=== PATIENT | male | born 1955 | race Caucasian/White ===

== ENCOUNTER 2018-07-25 21:41 | Emergency (ER) | payer OTHER, SELFPAY ==
[2018-07-25 21:51] VITALS: BP 165/84; PULSE 99; RESP 18; TEMP 37.2; O2SAT 97; BMI 35.2
--- NOTE | 2018-07-25 22:00 | ED_ITS ---
HPI - Chest Pain General Chief Complaint: Chest Pain Stated Complaint: CHEST PAIN Time Seen by Provider: 07/25/18 21:47 Source: patient Mode of arrival: ambulatory Limitations: no limitations History of Present Illness HPI narrative: 63-year-old male with a history of coronary artery disease and a prior history of a four-vessel coronary artery bypass graft done back in 2009 in [place]. Patient states that today he had retrosternal chest ?burning? he states that he went to his left arm. He states that he has had this pain off and on for the past couple days. He did state that he has nitro at home. He has never taken it before. He did take it at home today and stated that the symptoms completely resolved. States that after short period of time the symptoms returned. He has got no shortness of breath. No abdominal pain. No nausea. He states that the symptoms that brought him in today are very similar to his symptoms prior to his prior heart attack however not as bad. Related Data Home Medications Medication Instructions Recorded Confirmed aspirin, buffered 325 mg PO DAILY 07/25/18 07/25/18 atorvastatin 40 mg PO DAILY 07/25/18 07/25/18 metoprolol tartrate 50 mg PO BID 07/25/18 07/25/18 ramipril 2.5 mg PO DAILY 07/25/18 07/25/18 Review of Systems Constitutional Denies chills, Denies fatigue, Denies fever(s) and Denies malaise Eyes Denies diplopia ENT Ears, Nose, Mouth, and Throat: Denies vertigo and Denies dizziness Cardiovascular Reports chest pain, Denies diaphoresis, Denies rapid heart rate, Denies pedal edema, Denies edema, Denies irregular heart rhythm, Denies palpitations and Denies dyspnea Respiratory Denies cough and Denies dyspnea Gastrointestinal Gastrointestinal: Denies abdominal pain, Denies melena, Denies change in stool character, Denies constipation, Denies nausea and Denies vomiting Musculoskeletal Denies myalgias and Denies arthralgias Integumentary/Breasts Denies lesions and Denies rash Neurologic Denies confusion, Denies vertigo and Denies dizziness Psychiatric Denies confusion Endocrine Denies fatigue and Denies palpitations Hematologic/Lymphatic Denies easy bleeding and Denies easy bruising [facility] Medical History Coronary artery disease (Acute) Myocardial infarction (Acute) Surgical History Hx of CABG (Acute) Social History Smoking Status: Former smoker Exam Initial Vital Signs Initial Vital Signs: Vital Signs Temperature 99.0 F 07/25/18 21:51 Pulse Rate 99 H 07/25/18 21:51 Respiratory Rate 18 07/25/18 21:51 Blood Pressure 165/84 H 07/25/18 21:51 Pulse Oximetry 97 07/25/18 21:51 Const General: cooperative, healthy appearing, well developed, well groomed and No acute distress Orientation: alert, awake and oriented x3 HENMT Head: normal to inspection, normocephalic and atraumatic Chest Chest: normal inspection of the chest Breast inspection: normal inspection of the breasts Resp Effort & Inspection: normal respiratory effort Auscultation: clear to auscultation bilaterally Cardio Palpation: normal PMI Rate: regular rate Rhythm: regular rhythm Heart Sounds: no murmurs Pulses: radial pulses present GI Inspection: non-distended Palpation: soft, No firm and No tender Skin Lesions: no lesions Rashes: no rashes Neuro General: alert, awake and oriented x3 Cognition: normal cognition Speech: speech normal Motor: muscle tone normal throughout Sensory Exam: no sensory deficits noted Extrem General: normal to inspection, full ROM, capillary refill normal and No edema Psych Appearance: grossly normal and well kempt Course Orders Ordered: ED Orders 07/25/18 21:55 B Type Natriuretic Peptide Stat Basic Metabolic Panel Stat Complete Blood Count AUTO DIFF Stat Troponin I Stat 07/25/18 22:01 XR chest 1V Stat Sodium Chloride (Normal Saline 0.9%) 1,000 mls @ 125 mls/hr IV CONT ALINA Last Admin: 07/25/18 22:15 Dose: 125 mls/hr Discontinued Medications Aspirin (Aspirin Chew) 324 mg PO NOW ONE Stop: 07/25/18 22:01 Last Admin: 07/25/18 22:15 Dose: Not Given Heparin Sodium (Porcine) (Heparin) 6,100 unit 60 unit/kg (6100 unit) IV NOW ONE Stop: 07/25/18 22:53 Nitroglycerin (Nitro-Bid) 1 inch TOP NOW ONE Stop: 07/25/18 22:11 Last Admin: 07/25/18 22:15 Dose: 1 inch Vital Signs - 8 hr 07/25/18 21:51 07/25/18 23:12 Temperature 99.0 F Pulse Rate 99 H 84 Respiratory Rate 18 20 Blood Pressure 165/84 H Blood Pressure [Right Arm] 138/64 Pulse Oximetry 97 95 MDM - Chest Pain Lab Data Attestation: I reviewed the patient's lab results. Result diagrams: 07/25/18 21:55 07/25/18 21:55 Lab Results 07/25/18 07/25/18 Range/Units 21:55 21:55 WBC 14.7 H (4.5-11.0) X10^3/uL RBC 5.40 (4.5-5.9) X10^6/uL Hgb 15.1 (13.5-17.5) g/dL Hct 44.4 (41-53) % MCV 82.3 (80-100) fL MCH 28.0 (26-34) PG MCHC 34.1 (30-36) % RDW 13.9 (11.6-14.8) % Plt Count 290 (150-400) X10^3/uL Neut % (Auto) 63.3 (50-75) % Lymph % (Auto) 26.8 (25-40) % Schley % (Auto) 6.8 (3-14) % Eos % (Auto) 1.6 L (2-4) % Baso % (Auto) 1.5 (0-2) % Neut # (Auto) 9300 H (9924-3146) /uL Sodium 147 H (137-145) mmol/L Potassium 4.3 (3.4-5.1) mmol/L Chloride 107 (98-107) mmol/L Carbon Dioxide 26 (22-32) mmol/L BUN 24 H (9-20) mg/dL Creatinine 1.00 (0.66-1.25) mg/dL Estimated GFR > 60.0 (>60) mL/min BUN/Creatinine Ratio 24.0 H (6-22) Glucose 163 H (80-110) mg/dL Calcium 9.3 (8.4-10.2) mg/dL Troponin I 0.261 H* (0.01-0.034) ng/mL B-Natriuretic Peptide 94.8 (<100) Imaging Data Chest x-ray: Attestation: I personally reviewed and interpreted this imaging study as follows: My impression: No focal consolidation. No pneumothorax. Sternal wires in place ECG Data Attestation: I personally reviewed and interpreted this ECG as follows: Prior ECG tracings: not available for review Interpretation: Sinus rhythm Ventricular rate of 96 ST depressions V2 through V6, 1 aVL, no ST elevations 2 3 AVF for AVR Right bundle branch block Normal QTC MDM Narrative Medical decision making narrative: Patient with a history of coronary artery bypass graft and retrosternal burning that he states feels like his prior NM. He was given nitro paste here in the emergency department which did seem to improve his symptoms. He had already taken an aspirin prior to arrival. Heparin was started. He did have an elevated troponin. No ST elevations noted on the EKG however does have diffuse ST depressions. I discussed the case with sports development officer at [facility] who recommended the patient be transferred there. I discussed the case with the hospitalist with Internal Medicine who accepts the patient in transfer. I discussed the transfer with the patient and his . They both expressed understanding and agreement with plan. Discharge Plan Departure Patient Disposition: [facility] Clinical Impression: Non-ST elevation NM (NSTEMI) Prescriptions: No Action atorvastatin 40 mg Tablet 40 mg PO DAILY RF: 0 aspirin, buffered 325 mg Tablet 325 mg PO DAILY RF: 0 ramipril 2.5 mg Capsule 2.5 mg PO DAILY RF: 0 metoprolol tartrate 50 mg Tablet 50 mg PO BID RF: 0
--- NOTE | 2018-07-25 22:01 | DI.RAD.S_ITS ---
PROCEDURE: XR CHEST 1V INDICATIONS: Chest pain TECHNIQUE: One view of the chest was acquired. COMPARISON: None. FINDINGS: Surgical changes and devices: Patient is status post median sternotomy. Lungs and pleura: Lung volumes are low. Mild pulmonary opacities are present at the left lung base. No pleural effusion or pneumothorax. Mediastinum: Mediastinal contours appear normal. Heart size is normal. Bones and chest wall: No suspicious bony lesions. Overlying soft tissues appear unremarkable. IMPRESSION: Mild left basilar pulmonary radiopacity suspicious for atelectasis in the setting of low lung volumes. However, aspiration/infection could also be considered. Dictated by: Paz Rivera M.D. on 07/26/2018 at 7:02 Approved by: Paz Rivera M.D. on 07/26/2018 at 7:03
[2018-07-25 22:12] LABS: Blood Urea Nitrogen 24 mg/dL (9-20); Calcium 9.3 mg/dL (8.4-10.2); Carbon Dioxide 26 mmol/L (22-32); Chloride 107 mmol/L (98-107); Estimated Glomerular Filt Rate > 60.0 mL/min (>60); Glucose 163 mg/dL (80-110); Sodium 147 mmol/L (137-145)
[2018-07-25 22:13] LABS: Add Manual Diff / Slide Review NO; Basophils Percent Auto 1.5 % (0-2); Eosinophils Percent Auto 1.6 % (2-4); Hematocrit 44.4 % (41-53); Hemoglobin 15.1 g/dL (13.5-17.5); Lymphocytes Percent Auto 26.8 % (25-40); Mean Corpuscular HGB Conc 34.1 % (30-36); Mean Corpuscular Volume 82.3 fL (80-100); Monocytes Percent Auto 6.8 % (3-14); Neutrophils Absolute Auto 9300 /uL (3000-5900); Neutrophils Percent Auto 63.3 % (50-75); Platelet Count 290 X10^3/uL (150-400); Red Cell Distribution Width 13.9 % (11.6-14.8); White Blood Cell Count 14.7 X10^3/uL (4.5-11.0)
[2018-07-25 22:15] LABS: Potassium 4.3 mmol/L (3.4-5.1)
[2018-07-25] MEDS: NITROGLYCERIN OINT 1 INCH/GM OINT...G. TOP (22:15)
[2018-07-25] MEDS: SODIUM CHLORIDE 0.9% 1,000 ML 125 ML IV (22:15)
[2018-07-25 22:33] LABS: B Type Natriuretic Peptide 94.8 (<100)
[2018-07-25 22:48] LABS: HEMOLYSIS 71 (0-50)
[2018-07-25 22:51] LABS: Troponin I 0.261 ng/mL (0.01-0.034)
[2018-07-25 23:12] VITALS: BP 138/64; PULSE 84; RESP 20; O2SAT 95
[2018-07-25] MEDS: HEPARIN 5,000 UNIT/ML VIAL 6100 UNIT IV (23:41)
[2018-07-25] MEDS: HEPARIN DRIP 25,000 UNIT/500 ML IV.SOLN 24.494 UNIT IV (23:42)
[2018-07-26 00:35] VITALS: BP 129/71; PULSE 84; RESP 16
[2018-07-26 00:38] VITALS: TEMP 36.8
[2018-07-26 01:27] VITALS: BP 129/71; RESP 20; O2SAT 95
--- NOTE | 2018-07-26 02:50 | PC.NURSE ---
0130 Bedside report provided to casting finisher prior to transfer to [facility]. All questions and required documents provided. Pt denies any CP at this time and in NAD.
--- NOTE | 2018-07-27 23:50 | PC.NURSE ---
Late Entry for 07/26/2018 at 0145-IVF of NS 0.9% infusion completed of 1000ml and Heparin drip of 49ml when pt transferred to [facility] with [facility] transfer team. Pt continue to receive Heparin drip when left ER with [facility] cigar wrapper tender automatic.
== END 2018-07-26 01:35 | disposition short-term general hospital (02) ==
PROVIDERS: Emergency Provider Emergency Medicine
DX: I21.4 Non-ST elevation (NSTEMI) myocardial infarction (principal)
CPT/HCPCS: 36591; 71045; 80048; 83880; 84484; 85025; 93005; 93041; 96361; 96365; 96366; 96376; 99284; 99285; J1644

== ENCOUNTER 2018-08-13 19:26 | Emergency (ER) | payer OTHER, SELFPAY ==
[2018-08-13 19:32] VITALS: BP 118/61; PULSE 92; RESP 15; TEMP 36.7; O2SAT 90; BMI 33.5
--- NOTE | 2018-08-13 20:13 | ED_ITS ---
HPI - Male Genitourinary General Chief complaint: Urogenital-Male Stated complaint: HERNANDEZ CATH PLUGGED Time Seen by Provider: 08/13/18 20:13 Source: patient Mode of arrival: ambulatory Limitations: no limitations History of Present Illness HPI Narrative: 63-year-old male here for concerns of his Hernandez catheter being clogged. He has a Hernandez catheter in place since his recent hospital admission where he had a carotid endarterectomy and a coronary artery bypass graft. His was at bedside states that during this hospital visit he had a catheter in place but when they removed it he failed his due to void. He has had urinary issues in the past. He does have a scheduled follow-up with a urologist later this month. States he is having a lot of pressure feeling like he has to urinate he also has been leaking around the Hernandez catheter. Related Data Home Medications Medication Instructions Recorded Confirmed aspirin, buffered 325 mg PO DAILY 07/25/18 07/25/18 atorvastatin 40 mg PO DAILY 07/25/18 07/25/18 metoprolol tartrate 50 mg PO BID 07/25/18 07/25/18 ramipril 2.5 mg PO DAILY 07/25/18 07/25/18 Allergies Allergy/AdvReac Type Severity Reaction Status Date / Time No Known Drug Allergies Allergy Verified 08/13/18 19:32 Review of Systems Cardiovascular Denies chest pain and Denies dyspnea Respiratory Denies dyspnea Gastrointestinal Gastrointestinal: Denies abdominal pain Genitourinary Comments: Clogged urinary catheter Integumentary/Breasts Denies lesions and Denies rash Hematologic/Lymphatic Denies easy bleeding and Denies easy bruising [facility] Medical History Coronary artery disease (Acute) Myocardial infarction (Acute) Surgical History Hx of CABG (Acute) Social History Smoking Status: Former smoker Exam Initial Vital Signs Initial Vital Signs: Vital Signs Temperature 98.0 F 08/13/18 19:32 Pulse Rate 92 H 08/13/18 19:32 Respiratory Rate 15 08/13/18 19:32 Blood Pressure 118/61 08/13/18 19:32 Pulse Oximetry 90 L 08/13/18 19:32 Const General: cooperative, healthy appearing, comfortable, well developed, well groomed and No acute distress Orientation: alert, awake and oriented x3 GI Other: lower abdomen distention with tenderness to palpation suprapubic Other: Hernandez catheter in place Skin Lesions: no lesions Rashes: no rashes Psych Appearance: grossly normal and well kempt Course Vital Signs - 8 hr 08/13/18 19:32 08/13/18 21:45 Temperature 98.0 F 98.7 F Pulse Rate 92 H 85 Respiratory Rate 15 16 Blood Pressure 118/61 107/61 Pulse Oximetry 90 L 95 MDM - Male Genitourinary MDM Narrative Medical decision making narrative: patient's Hernandez catheter was irrigated here in the emergency department with return of small clots. Did flow afterwards and had return of approximately 100 cc urine. Patient states he felt much better. We did discuss care instructions. He was instructed to keep his appointment with his urologist. He was given return precautions. He expressed understanding and agreement with plan. Discharge Plan Departure Patient Disposition: Home Clinical Impression: Obstructed Hernandez catheter Discharge Date/Time: 08/13/18 21:45 Interventions: ED Discharge Assessment Last Done: 08/13/18 21:45 Instructions: How to Care for Your Hernandez Catheter -- Male Activity Restrictions/Additional Instructions: Keep all of your scheduled medical appointments. Make sure you are drinking plenty of fluids like we discussed. Return to the emergency department for any new or worsening symptoms Prescriptions: No Action atorvastatin 40 mg Tablet 40 mg PO DAILY RF: 0 aspirin, buffered 325 mg Tablet 325 mg PO DAILY RF: 0 ramipril 2.5 mg Capsule 2.5 mg PO DAILY RF: 0 metoprolol tartrate 50 mg Tablet 50 mg PO BID RF: 0
[2018-08-13 21:45] VITALS: BP 107/61; PULSE 85; RESP 16; TEMP 37.1; O2SAT 95
== END 2018-08-13 21:45 | disposition home or self-care (01) ==
PROVIDERS: Emergency Provider Emergency Medicine
DX: T83.091A Other mechanical complication of indwelling urethral catheter, initial encounter (principal)
CPT/HCPCS: 51700; 99283

== ENCOUNTER 2018-08-21 16:52 | Emergency (ER) | payer OTHER, SELFPAY ==
[2018-08-21 16:56] VITALS: BP 123/75; PULSE 84; RESP 17; TEMP 36.3; O2SAT 98; BMI 33.5
--- NOTE | 2018-08-21 17:36 | PC.NURSE ---
indwelling cath for several week r/t unable to void after cardiac surg, no drainage from holcomb x8 hours, bladder scan 675ml at time of exam, unable to irrigate cath, cath removed, pt voided 375ml after holcomb removal
[2018-08-21 17:38] LABS: Bacteria Urine None Seen
[2018-08-21 17:39] LABS: Appearance Urine UA CLEAR; Bilirubin Urine UA NEGATIVE (NEGATIVE); Color Urine UA YELLOW; Glucose Urine UA NEGATIVE (Normal); Ketones Urine UA NEGATIVE (NEGATIVE); Leukocyte Esterase Urine UA 2+ (NEGATIVE); Nitrite Urine UA Negative (Negative); Occult Blood Urine UA 1+ (Negative); Protein Urine UA NEGATIVE (Negative); Specific Gravity Urine UA 1.015 (1.000-1.035); Urobilinogen Urine UA 0.2 E.U./dL (0.2)
[2018-08-21 17:51] LABS: Culture Indicated Urine Specimen Cultured; RBC Urine 1-5/HPF (0-5/HPF); WBC Urine 5-10/HPF (0-5/HPF)
--- NOTE | 2018-08-21 18:02 | ED_ITS ---
HPI - Male Genitourinary General Chief complaint: Urogenital-Male Stated complaint: FULL CATH THATS PLUGGED Time Seen by Provider: 08/21/18 17:19 Source: patient and family Mode of arrival: ambulatory Limitations: no limitations History of Present Illness HPI Narrative: Patient presents with chief complaint of Modi catheter Clogged. He has a history of TURP and urinary retention. He has had a Modi catheter since his CABG that was 2 weeks ago. He has come in with blocked Modi once before. It was flushed at that time. He denies any abdominal pain, flank pain, nausea vomiting or diarrhea. He states he feels like his bladder is distended. Related Data Home Medications Medication Instructions Recorded Confirmed aspirin, buffered 325 mg PO DAILY 07/25/18 07/25/18 atorvastatin 40 mg PO DAILY 07/25/18 07/25/18 metoprolol tartrate 50 mg PO BID 07/25/18 07/25/18 ramipril 2.5 mg PO DAILY 07/25/18 07/25/18 Allergies Allergy/AdvReac Type Severity Reaction Status Date / Time No Known Drug Allergies Allergy Verified 08/13/18 19:32 Review of Systems Review of Systems GENERAL: Denies chills, fatigue, malaise, fever, sweats. HEENT: Denies sinus pain, ear pain, sore throat, difficulty swallowing, dizziness. RESPIRATORY: Denies dyspnea, cough, wheezing, hemoptysis, sputum. CARDIOVASCULAR: Denies chest pain, palpitations, orthopnea, edema, GASTROINTESTINAL: Denies nausea, vomiting, abdominal pain, diarrhea, constipation, melena. : See HPI MUSCULOSKELETAL: denies weakness, joint pain, or bony pain SKIN: Denies rash, skin lesions, or other NEUROLOGIC: Denies weakness, headache, numbness, change in speech, confusion, seizures, incoordination. PSYCHIATRIC: No concerning psychosocial issues. 12 point review of systems is negative except for those stated above [facility] Social History Smoking Status: Former smoker Exam Narrative Exam Narrative: GENERAL: This is a well-nourished, well-developed patient, in mild distress. HEAD: Atraumatic. Normocephalic. No temporal or scalp tenderness. EYES: Pupils equal round and reactive. Extraocular motions intact. No scleral icterus. No injection or drainage. ENT: Nose without bleeding, purulent drainage or septal hematoma. Throat without erythema, tonsillar hypertrophy or exudate. Uvula midline. Airway patent. NECK: Trachea midline. No JVD or lymphadenopathy. Supple, nontender, no meningeal signs. CARDIOVASCULAR: Regular rate and rhythm without murmurs, gallops, or rubs. RESPIRATORY: Clear to auscultation. Breath sounds equal bilaterally. No wheezes , rales, or rhonchi. GASTROINTESTINAL: Abdomen soft, non-tender, nondistended. No hepato-splenomegaly , or palpable masses. No guarding. no suprapubic tenderness to palpation. active bowel sounds x 4 quadrants. EXTREMITIES: No clubbing, cyanosis, or edema. No joint tenderness, effusion, or edema noted. BACK: Nontender without deformity or crepitance. No flank tenderness. NEURO: AOx3. SKIN: No rash or erythema. Initial Vital Signs Initial Vital Signs: Vital Signs Temperature 97.4 F L 08/21/18 16:56 Pulse Rate 84 08/21/18 16:56 Respiratory Rate 17 08/21/18 16:56 Blood Pressure 123/75 08/21/18 16:56 Pulse Oximetry 98 08/21/18 16:56 Course Orders Ordered: ED Orders 08/21/18 17:30 Urinalysis and Microscopic Stat Urine Culture Stat Vital Signs - 8 hr 08/21/18 16:56 08/21/18 19:02 Temperature 97.4 F L Pulse Rate 84 89 Respiratory Rate 17 18 Blood Pressure 123/75 126/61 Pulse Oximetry 98 97 MDM - Male Genitourinary Lab Data Lab Results 08/21/18 Range/Units 17:30 Urine Color Yellow Urine Appearance Clear Urine pH 5.0 (4.5-8.0) Ur Specific [place] 1.015 (1.000-1.035) Urine Protein Negative (Negative) Urine Glucose (UA) Negative (Normal) g/dL Urine Ketones Negative (NEGATIVE) Urine Occult Blood 1+ H (Negative) Urine Nitrate Negative (Negative) Urine Bilirubin Negative (NEGATIVE) Urine Urobilinogen 0.2 (0.2) E.U./dL Ur Leukocyte Esterase 2+ H (NEGATIVE) Urine RBC 1-5/hpf (0-5/HPF) Urine WBC 5-10/hpf H (0-5/HPF) Urine Bacteria None seen (None) Ur Culture Indicated? Specimen cultured Micro UA Comment Not Reportable MDM Narrative Medical decision making narrative: patient presents to the emergency department after his Modi was obstructed. He has a Modi after being unable to void after his CABG 2 weeks ago. He has planned follow-up with Urology in the next few days. the Modi was unable to be flushed and then it was removed. The patient was able to void significantly after the Modi was removed. The patient has a history of needing to self cath for several months and states desire to his him that practice rather than have a Modi catheter. The patient was able to self cath himself with proper technique in front of the nurse. Given the patient's experience a preference, as well as his ability to void demonstrated in the emergency department, The patient was not discharged home with a Modi catheter but rather a self cath plan. He had no questions or concerns upon discharge. We discussed monitoring for signs and symptoms of infection. He plans on following up with Urology as scheduled. Discharge Plan Departure Patient Disposition: Home Clinical Impression: Obstructed Modi catheter, History of urinary retention Discharge Date/Time: 08/21/18 19:02 Interventions: ED Discharge Assessment Last Done: 08/21/18 19:02 Instructions: DI for Urinary Retention in Men Activity Restrictions/Additional Instructions: We took out your Modi catheter today. Please monitor for signs and symptoms of urinary tract infection including suprapubic pain, dysuria urgency or frequency. We have discussed at length resuming your self catheter schedule. Please follow-up with urology as discussed. Prescriptions: No Action atorvastatin 40 mg Tablet 40 mg PO DAILY RF: 0 aspirin, buffered 325 mg Tablet 325 mg PO DAILY RF: 0 ramipril 2.5 mg Capsule 2.5 mg PO DAILY RF: 0 metoprolol tartrate 50 mg Tablet 50 mg PO BID RF: 0
[2018-08-21 19:02] VITALS: BP 126/61; PULSE 89; RESP 18; O2SAT 97
== END 2018-08-21 19:02 | disposition home or self-care (01) ==
PROVIDERS: Emergency Provider Nurse Practitioner Family
DX: T83.091A Other mechanical complication of indwelling urethral catheter, initial encounter (principal); Z87.898 Personal history of other specified conditions
CPT/HCPCS: 81001; 87086; 99282; 99283

== ENCOUNTER 2018-12-09 10:00 | Outpatient (RCR) | payer OTHER, SELFPAY | END 2018-12-10 08:09 | LOC: CAR 10:00 | PROVIDERS: Visit Provider Thoracic Surgery (Cardiothoracic Vascular Surgery) | DX: Z95.1 Presence of aortocoronary bypass graft (principal) | CPT/HCPCS: 93798 ==